=== PATIENT | female | born 1990 | race Caucasian/White ===

== ENCOUNTER 2017-10-06 23:19 | Emergency (ER) | payer OTHER, MEDICAID ==
[~2017-10-06] VITALS: Ht 149.9 cm; Wt 68.0 kg
[~2017-10-06 23:19] MED LIST: LAMICTAL200 MG PO; MOTRIN800 MG PO; ZONEGRAN25 MG PO
[2017-10-06 23:58] VITALS: Ht 149.9 cm; Wt 68.0 kg
[2017-10-07 02:15] LABS: PLATELET COUNT 303 x10^3mcL (130-400); RED CELL DISTRIBUTION WIDTH 14.3 % (11.5-14.5)
[2017-10-07 02:20] LABS: CALCIUM 10.1 mg/dL (8.5-10.1); CARBON DIOXIDE 24.4 mmol/L (21-32); CHLORIDE SERUM 106 mmol/L (98-107); GFR1 > 60 mL/min; GLUCOSE SERUM 140 mg/dL (74-106); POTASSIUM SERUM 4.2 mmol/L (3.5-5.1); SODIUM SERUM 142 mmol/L (136-145)
[2017-10-07 02:24] LABS: ALBUMIN 4.2 g/dL (3.4-5.0); ALKALINE PHOSPHATASE 82 U/L (46-116); ALT/SGPT 30 U/L (14-59); AST/SGOT 17 U/L (15-37); BILIRUBIN TOTAL 0.27 mg/dL (0.20-1.00)
[2017-10-07 02:29] LABS: TOTAL PROTEIN, SERUM 8.5 g/dL (6.4-8.2)
[2017-10-07 02:34] VITALS: BP 136/85
[2017-10-07 02:40] LABS: BAND NEUTROPHIL 3 % (0-10); BASOPHIL 0 % (0-2); MONOCYTE 1 % (0-7); SEGMENTED NEUTROPHILS 92 % (37-75)
[2017-10-07 02:41] LABS: rbc morphology (normal/abnorm) NORMAL (NORMAL)
== END 2017-10-07 02:56 | disposition home or self-care (01) ==
LOC: ED 23:19
PROVIDERS: Emergency Medicine
DX: B34.9 Viral infection, unspecified (principal)
CPT/HCPCS: 36415; Q0162